=== PATIENT | female | born 1930 | race Caucasian/White ===

== ENCOUNTER 2019-01-10 07:18 | Inpatient (IN) | payer MEDICARE ==
--- NOTE | 2019-01-09 12:11 | Diagnostic Imaging Report ---
EXAMINATION: PA and lateral views of the chest. COMPARISON: None CLINICAL HISTORY: Preoperative study right hip surgery DISCUSSION: Lungs are well-inflated. Calcified granuloma right upper lobe area mild biapical pleural-parenchymal scar. No airspace consolidation, pleural effusion, or pneumothorax. Atherosclerotic calcification of the thoracic aorta. Normal heart size. No overt pulmonary edema. Degenerative disc changes of the thoracic spine. No acute osseous abnormality. IMPRESSION: No acute cardiopulmonary abnormalities. Signed by: Dr. Checo Wilson M.D. on 01/09/2019 12:08 PM
[2019-01-09 12:25] LABS: BASOPHILS # (AUTO) 0.1 (0.0-0.1); EOSINOPHILS # (AUTO) 0.1 (0.0-0.4); EOSINOPHILS % 1.4 % (0.0-6.0); HEMATOCRIT 40.2 % (34.2-44.1); HEMOGLOBIN 13.3 g/dL (12.0-16.0); LYMPHOCYTES # (AUTO) 1.3 (1.0-3.2); LYMPHOCYTES % 21.2 % (18.0-39.1); MEAN CORPUSCULAR HEMOGLOBIN 30.2 pg (28-32); MEAN CORPUSCULAR HGB CONC 33.1 g/dL (31-35); MEAN CORPUSCULAR VOLUME 91.2 fL (81-99); MONOCYTES # (AUTO) 0.7 (0.2-0.8); MONOCYTES % 11.4 % (4.4-11.3); NEUTROPHILS # (AUTO) 3.8 (2.1-6.9); NEUTROPHILS % 64.7 % (38.7-80.0); PLATELET COUNT 184 x10e3/uL (140-360); RED BLOOD COUNT 4.41 x10e6/uL (3.6-5.1); RED CELL DISTRIBUTION WIDTH 12.5 % (11.7-14.4)
[2019-01-09 13:02] LABS: CALCIUM 10.4 mg/dL (8.4-10.2); CREATININE, SERUM 1.39 mg/dL (0.57-1.11)
[~2019-01-10] VITALS: Ht 154.9 cm; Wt 75.3 kg
[~2019-01-10 07:18] MED LIST: ALENDRONATE SOD35 MG; ALIGN4 MG; AMLODIPINE BESYL5 MG PO; CALCITONIN; CALCIUM 600 +1 EAC2 PO; CENTRUM SILVER1 EAC3 PO; FISH OIL 1,0001 EAC2; HYDROCHLOROTHIA25 MG; IBUPROFEN200 MG PO; MELOXICAM7.5 MG PO; OMEGA 3 FISH O1 EACH PO; OMEPRAZOLE40 MG; PEPCID20 MG; PRAVASTATIN SOD20 MG; PRAVASTATIN SOD20 MG PO; ROBITUSSIN COU118 ML PO; ROPIVACAINE 246.25 MG, EPINEPHRINE HCL 1:1000 1ML 0.5 MG, CLONIDINE HCL 0.08 MG, KETORO... INJ ONE; TURMERIC1 GM; VITAMIN B-122500 MCG PO; VITAMIN C1000 MG PO; VITAMIN D32000 UNIT; VITAMIN D32000 UNIT PO; VITAMIN E400 UNI1 PO
--- OUTSIDE RECORDS SUMMARY | 2019-01-10 07:21 | XMS REPORT ---
Author Author [facility] Address Unknown Phone Unavailable Care Team Providers Care Safety Administrator Name Role Phone STEFF OLIVO Unavailable Unavailable Problems This patient has no known problems. Allergies, Adverse Reactions, Alerts This patient has no known allergies or adverse reactions. Medications This patient has no known medications. Results Test Description Test Time Test Comments Text Results Atomic Results Result Comments CHEST 2 VIEWS 2019-01-09 12:07:00 [place] [address] Patient Name: YEVGENIY LAURENT MR #: [id number] : 1930 Age/Sex: 88/F Req #: [id number] [facility] Physician: Ordered by: STEFF OLIVO MD Report #: [id number] Location: OR Room/Bed: Procedure: [id number] DX/CHEST 2 VIEWS Exam Date: 01/09/19 Exam Time: 1130 REPORT STATUS: Signed EXAMINATION: PA and lateral views of the chest. COMPAR WHIT: None CLINICAL HISTORY: Preoperative study right hip surgery DISCUSSION: Lungs are well-inflated. Calcified granuloma right upper lobe area mild biapical pleural-parenchymal scar. No airspace consolidation, pleural effusion, or pneumothorax. Atherosclerotic calcification of the thoracic aorta. Normal heart size. No overt pulmonary edema. Degenerative disc changes of the thoracic spine. No acute osseous abnormality. IMPRESSION: No acute cardiopulmonary abnormalities. Signed by: Dr. Steff Rasmussen M.D. on 01/09/2019 12:08 PM Dictated By: STEFF RASMUSSEN MD [id number] Transcribed By: RASHAUN on 01/09/19 1208 COPY TO: STEFF OLIVO MD
[2019-01-10] MEDS ORDERED: VANCOMYCIN HCL 500 MG ONE (07:53)
[2019-01-10] MEDS ORDERED: SODIUM CHLORIDE 0.9% 500ML 500 ML ONE (07:53)
[2019-01-10] MEDS ORDERED: TRANEXAMIC ACID 1,000 MG/10 ML ML ONE (07:54)
[2019-01-10] MEDS ORDERED: BACITRACIN 50,000 UNIT VIAL ONE (07:54)
[2019-01-10] MEDS ORDERED: CELECOXIB 200 MG CAP ONE (08:08)
[2019-01-10] MEDS ORDERED: DEXAMETHASONE SOD PHOS 10 MG/1 ML VIAL ONE (08:08)
[2019-01-10] MEDS ORDERED: GABAPENTIN 300 MG CAP ONE (08:08)
[2019-01-10] MEDS ORDERED: VANCOMYCIN 1GM/NS 250 ML 250 ML ONE (08:08)
[2019-01-10] MEDS ORDERED: BUPIVACAINE 7.5MG/ML /DEXTROSE 82.5MG/ML 2 ML AMP INJ ONE (08:12)
[2019-01-10] MEDS ORDERED: HYDROGEN PEROXIDE 120 ML BTL ONE (09:29)
--- NOTE | 2019-01-10 10:14 | NUR ---
PATIENT DME AND HOME HEALTH COMPANIES PRE-ARRANGED BY DR. OLIVO'S OFFICE. PATIENT WITH HOME HEALTH AND DME CONTACT INFORMATION. PATIENT AWARE TO CALL CM IF ANY PROBLEMS OCCUR WITHIN 3 DAYS POST- DISCHARGE. HOME HEALTH EXPLAINED IN DEPTH WITH SERVICES PROVIDED. PATIENT VERBALLY UNDERSTOOD. THE FOLLOWING HOME HEALTH VERIFIED PATIENT IS ON SERVICE WITH THEM: [facility] (P) [phone] (F) [phone] OR [phone]
--- NOTE | 2019-01-10 10:16 | NUR ---
CATINA CALLED [facility] TO CONFIRM PATIENT ON CASE LOAD. PATIENT CONFIRMED TO BE SEEN ON FRIDAY 01/[address] [facility]. CATINA SPOKE TO PEMA THAT HANDLES DME FOR [facility], SHE STATES PATIENT CANCELLED ORDER BECAUSE SHE HAS EQUIPMENT FROM LAST HIP SURGERY. PATIENT VERIFIES AND STATES SHE HAS EQUIPMENT AT HOME. ROLLING WALKER TO BE BROUGHT TO HOSPITAL PRIOR TO OR AT DISCHARGE BY FAMILY.
[2019-01-10] MEDS ORDERED: DOCUSATE SODIUM 100 MG CAP PO PRN (11:15)
[2019-01-10] MEDS ORDERED: HYDROCODONE/APAP 7.5MG-325MG 1 EA TAB PO PRN (11:15)
[2019-01-10] MEDS ORDERED: KETOROLAC TROMETHAMINE 30 MG/ML VIAL IV PRN (11:15)
[2019-01-10] MEDS ORDERED: HYDROCODONE/APAP 5MG-325MG TAB PO PRN (11:15)
[2019-01-10] MEDS ORDERED: ONDANSETRON HCL INJ 2MG/ML 2ML 2 MG/ML VIAL IV PRN (11:15)
[2019-01-10] MEDS ORDERED: ACETAMINOPHEN 650 MG SUPP PR PRN (11:15)
[2019-01-10] MEDS ORDERED: DIPHENHYDRAMINE HCL INJ 50 MG/ML VIAL IM/IV PRN (11:15)
[2019-01-10] MEDS ORDERED: PROMETHAZINE HCL (IM) 25 MG/ML VIAL IM PRN (11:15)
[2019-01-10] MEDS ORDERED: FENTANYL CITRATE/PF 100MCG/2 ML INJ ONE ×2 (11:37→18:35)
--- NOTE | 2019-01-10 14:32 | Diagnostic Imaging Report ---
Exam: Single portable view of the pelvis. History: Status post right hip replacement Comparison: None available Findings: Recent hip replacement on the right is noted with soft tissue air and surgical skin gregor. Acetabular cup and femoral ball/shaft appear in good position. Patient has had an old left hip replacement. Impression: Status post right hip replacement. Signed by: Dr. Zelalem Gaffney DO on 01/10/2019 1:01 PM
--- NOTE | 2019-01-10 15:44 | NUR ---
Patient admitted to unit from PACU. patient is AAox3. patient is post op right hip replacement. Dressing clean and dry to hip. No c/o pain at this time. Lung dan clear to auscultation. Bowel sounds present x4 but hypoactive. Patient has a dimas catheter in place with clear urine noted. Bilateral SCD's in place. Left forearm IV in place. Iv fluids infusing.
[2019-01-10 16:00] VITALS: BP 126/58
[2019-01-10 16:22] VITALS: BP 126/58
[2019-01-10 16:26] VITALS: BP 126/58
[2019-01-10 16:28] VITALS: BP 126/58
[2019-01-10] MEDS: SODIUM CHLORIDE 0.9% 1000ML 1,000 ML IV SCH ×2 (16:54→21:08)
[2019-01-10] MEDS: ACETAMINOPHEN 1000 MG/100 ML IV SCH ×2 (16:54→23:26)
[2019-01-10] MEDS ORDERED: CELECOXIB 100 MG CAP PO SCH (17:00)
[2019-01-10] MEDS ORDERED: NEOSTIGMINE 5 MG/5ML SYR ONE (17:34)
[2019-01-10] MEDS ORDERED: GLYCOPYRROLATE INJ 1MG/ 5 ML SYR ONE (17:34)
[2019-01-10] MEDS ORDERED: ACETAMINOPHEN 1000 MG/100 ML IV ONE (17:34)
[2019-01-10] MEDS ORDERED: ONDANSETRON HCL INJ 2MG/ML 2ML 2 MG/ML VIAL ONE (17:34)
[2019-01-10] MEDS ORDERED: PROPOFOL IV EMULSION 10 MG/ML 20 ML VIAL ONE (17:34)
[2019-01-10] MEDS: FAMOTIDINE 20 MG TAB PO SCH (18:00)
[2019-01-10] MEDS: ASPIRIN 325 MG TAB PO SCH (18:00)
[2019-01-10] MEDS: CELECOXIB 200 MG CAP PO SCH (18:03)
[2019-01-10] MEDS ORDERED: MIDAZOLAM HCL 2 MG/2 ML VIAL ONE (18:35)
[2019-01-10] MEDS ORDERED: KETAMINE HCL INJ 50 MG/ML 10 ML VIAL ONE (18:35)
--- NOTE | 2019-01-10 18:56 | Operative Report ---
DATE OF PROCEDURE: 01/10/2019 SURGEON: Checo Ndiaye MD PACKAGE LINER: Pawan Kemp, certified PA. PREOPERATIVE DIAGNOSIS: Osteoarthritis, right hip. POSTOPERATIVE DIAGNOSIS: Osteoarthritis, right hip. PROCEDURE: Right total hip arthroplasty. 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 She is status post a left hip replacement some years ago. She would now like to proceed with a right total hip replacement. The risks and benefits have been explained. She states she understands and wishes to proceed. DESCRIPTION OF PROCEDURE: The patient was brought to the operating room. She received prophylactic antibiotics and tranexamic acid in the holding area. A spinal anesthetic was attempted, but it was unsuccessful. She was placed under general anesthetic. She was positioned in the left lateral decubitus position. Her right hip was prepped and draped in a sterile manner. A preoperative time-out was performed. A posterior approach was made to the right hip. Abundant subcutaneous adipose tissue was encountered. A deep Charnley self-retaining retractor was placed. Hemostasis was obtained with electrocautery. The posterior capsule was exposed and released. The capsule was preserved for later repair. The hip was dislocated and an oscillating saw was used to resect the femoral head. Complete loss of articular cartilage was noted. Acetabular retractors were placed. The labral remnant was excised with a long-handled knife. The true floor of the acetabulum was established with a 46-mm reamer. The socket was then sequentially reamed to 53 mm. A [place] Trident 54 mm outer diameter socket was then impacted into place. Fixation was augmented with a single 25 mm cancellous screw placed into the ilium. The hip had been thoroughly irrigated with a shower tip pulsatile lavage. An additional mixture of polymyxin and vancomycin was used in a spray bottle throughout the case. A highly cross-linked polyethylene liner with a 36 mm inner diameter was then seated into the socket. Care was taken to make sure that there was no evidence of soft tissue interposition. The socket was then packed with a moistly soaked lap sponge and attention was directed towards the proximal femur. A box cutting osteotome and taper pin reamer were used to establish entry to the femoral canal. The Scribner 37.5 mm offset broaches were impacted. A #1 stem had good canal fill for trial reductions. These were performed. The hip was put through a full arc of motion and felt to be stable. The trial implants were then removed. A bone plug was placed down the femoral canal. Two mixes of Simplex cement preloaded with antibiotics were prepared on the back table. These were inserted in a retrograde fashion and pressurized until about 6 minutes. The canal had been thoroughly irrigated with pulsatile lavage and then packed with moistly soaked peroxide sponges prior to cement insertion. The stem was seated to the predetermined level in about 15 degrees of anteversion. Once the cement had cured, a standard 36 mm head was placed onto the stem and a final reduction was performed. Again, the hip was put through a full arc of motion and felt to have excellent stability. A 100 mL premixed pericapsular injection was then injected around the soft tissue. The tensor fascia and gluteal fascia were closed with interrupted #1 Ethibond. The posterior capsule was closed with #1 Ethibond. The skin was closed with subcuticular Vicryl and gregor. A sterile Aquacel bandage was applied. She was returned to the supine position, extubated and transported to the recovery room in stable condition. Blood loss was approximately 100 mL. All needle and sponge counts were correct. Checo Ndiaye MD DR/BINA /[id number]
--- NOTE | 2019-01-10 19:45 | NUR ---
RECEIVED THE PT FROM AM RN.WALKING ROUNDS DONE.AAOX4.NO PAIN VOICED.INCISION SITE IS DRY AND INTACT.ABDUCTION PILLOW IS IN PLACE.PLEXIPUMP IS IN PLACE.BED LOCKED AND IN LOWEST POSITION.PHONE AND CALL LIGHT WITHIN REACH. INSTRUCTED TO CALL FOR ASSISTANCE NEEDED.FAMILY MEMBER AT BED SIDE.
[2019-01-10 20:01] VITALS: BP 153/77
[2019-01-10 20:10] VITALS: BP 153/77
[2019-01-10] MEDS ORDERED: ZOLPIDEM TARTRATE 5 MG TAB PO PRN (21:00)
[2019-01-10] MEDS ORDERED: PRAVASTATIN 20 MG TAB PO SCH (21:00)
[2019-01-10] MEDS: VANCOMYCIN 1GM/NS 250 ML 250 ML IV SCH (21:30)
[2019-01-11] VITALS: BP 108/59
[2019-01-11 04:00] VITALS: BP 107/68
[2019-01-11] MEDS: ACETAMINOPHEN 1000 MG/100 ML IV SCH (05:16)
--- NOTE | 2019-01-11 05:45 | NUR ---
D/C ABBOTT CATHETER.CATHETER TIP INTACT.PT TOLERATED WELL.PT IS DUE TO VOID.
[2019-01-11 06:12] LABS: HEMATOCRIT 32.3 % (34.2-44.1); HEMOGLOBIN 10.8 g/dL (12.0-16.0)
--- NOTE | 2019-01-11 06:50 | NUR ---
Report given to the oncoming rn.walking rounds done.stable condition.
[2019-01-11] MEDS: SODIUM CHLORIDE 0.9% 1000ML 1,000 ML IV SCH (07:08)
[2019-01-11] MEDS ORDERED: PANTOPRAZOLE SOD 40 MG TABEC PO SCH (07:30)
[2019-01-11 07:57] VITALS: BP 127/70
[2019-01-11] MEDS: FAMOTIDINE 20 MG TAB PO SCH (08:30)
[2019-01-11] MEDS ORDERED: AMLODIPINE BESYLATE 5 MG TAB PO SCH (09:00)
[2019-01-11] MEDS ORDERED: HYDROCHLOROTHIAZIDE 25 MG TAB PO SCH (09:00)
[2019-01-11] MEDS: CELECOXIB 200 MG CAP PO SCH (10:00)
[2019-01-11] MEDS: ASPIRIN 325 MG TAB PO SCH (10:00)
[2019-01-11] MEDS: VANCOMYCIN 1GM/NS 250 ML 250 ML IV SCH (10:00)
[2019-01-11] MEDS ORDERED: ACETAMINOPHEN 1000 MG/100 ML IV PRN (11:15)
[2019-01-11 11:19] VITALS: BP 127/70
[2019-01-11 13:25] VITALS: BP 113/56
[2019-01-11] MEDS ORDERED: ASPIRIN325 MG PO (13:35)
--- NOTE | 2019-01-11 13:59 | NUR ---
MD OLIVO INTO SEE PT, DISCUSSED DISCHARGE INSTRUCTIONS WITH PT, PT VERBALIZED UNDERSTANDING
[2019-01-11] MEDS ORDERED: NORCO 5-325 TA1 EACH PO (14:18)
--- NOTE | 2019-01-11 14:21 | NUR ---
EDUCATED ABOUT IMM, SIGNED, FILED IN CHART, WITH COPY LEFT WITH FAMILY AT BEDSIDE.
--- NOTE | 2019-01-11 14:49 | NUR ---
DISCHARGE INSTRUCTIONS REVIEWED WITH PT AND FAMILY, VERBALIZED UNDERSTANDING, PT NOW REPORTS THAT THE NORCO IS MAKING HER SEE THINGS AND IS TOO STRONG FOR HER, TELEPHONED MD OLIVO'S OFFICE, SPOKE WITH JEANNETTE , MADE AWARE AND LEFT PHARMACY NUMBER FOR MD TO CALL IN PRESCRIPTION FOR PT
--- NOTE | 2019-01-11 15:00 | NUR ---
PT WHEELED OFF UNIT VIA WC FOR DISCHARGE, NO CHANGE IN CONDITION
--- NOTE | 2019-01-11 16:45 | Consultation ---
DATE OF CONSULTATION: PRIMARY CARE PHYSICIAN: Gordo Bustamante MD. REASON FOR CONSULTATION: Medical management. The patient is status post right hip arthroplasty. HISTORY OF PRESENT ILLNESS: An 89-year-old female, who is status post a right total hip arthroplasty. She is postoperative day #1. The patient is otherwise stable. She has had no chest pain or shortness of breath. PAST MEDICAL HISTORY: Hypertension, osteoarthritis, dyslipidemia, osteoporosis. PAST SURGICAL HISTORY: Left hip arthroplasty, colon polyp removed, right foot surgery, tubal ligation, and benign breast tumor removal. SOCIAL HISTORY: The patient does not smoke or use alcohol. No recreational drugs. ALLERGIES: TO PENICILLIN. HOME MEDICATIONS: List reviewed. REVIEW OF SYSTEMS: Postoperative reasonable pain. PHYSICAL EXAMINATION: VITAL SIGNS: Temperature is 98, blood pressure 127/70, pulse rate 70, respirations 18. GENERAL: The patient is not in acute distress. HEENT: Normocephalic and atraumatic. Anicteric. NECK: Supple grossly. PULMONARY: Diminished breath sounds without any wheezing or rales. CARDIOVASCULAR: S1 and S2, regular rate and rhythm. ABDOMEN: Soft and unremarkable. EXTREMITIES: Status post right hip replacement. NEUROLOGIC: No focal deficit. LABORATORY DATA: Sodium is 138, potassium 3.3, chloride 96, bicarb 31, BUN 25, creatinine 1.3, glucose 96. WBC is 5.9, hemoglobin 10.8, hematocrit 32.3, platelets are 184. IMPRESSION: 1. Status post right total hip arthroplasty. 2. Chronic anemia. 3. Hypertension. 4. Osteoporosis. 5. Osteoarthritis. PLAN: Continue with home medication. Pain control, PT/OT, incentive spirometry. Blood pressure control. Discontinue IV fluids. We will check the patient's lab work in the morning. The patient may or may not need blood transfusion due to anemia postop. MD DAMON Perdue/BINA /[id number]
== END 2019-01-11 14:53 | disposition home or self-care (01) | DRG 470 ==
LOC: OR 07:18 → PACU V 11:10 → MED/SURG 16:13
PROVIDERS: ADMIT Specialist; ATTEND Specialist
PROC: 0SR9029 Replacement of Right Hip Joint with Metal on Polyethylene Synthetic Substitute, Cemented, Open Approach (ICD-10-PCS; principal; 2019-01-10 10:00)
DX: M16.0 Bilateral primary osteoarthritis of hip (principal); D64.9 Anemia, unspecified; I10 Essential (primary) hypertension; M81.0 Age-related osteoporosis without current pathological fracture; E78.5 Hyperlipidemia, unspecified; Z96.642 Presence of left artificial hip joint; M47.816 Spondylosis without myelopathy or radiculopathy, lumbar region
CPT/HCPCS: 36415; 71046; 72170; 80048; 84132; 85014; 85018; 85025; 86850; 86900; 86920; 93005; C1713; J0171; J1100; J1885; J2250; J2405; J2795; J3370; J7030; J7040